=== PATIENT | male | born 1960 | race Caucasian/White ===

== ENCOUNTER 2017-08-03 10:48 | Emergency (ER) | payer OTHER ==
[2017-08-03] MEDS ORDERED: BACIGUENT PACKET TP ONE (11:27)
[2017-08-03] MEDS ORDERED: XYLOCAINE 1% HCL 20 ML MDV IJ ONE (11:27)
[2017-08-03] MEDS ORDERED: Adacel Vial IM ONE ×2 (11:27→11:44)
--- NOTE | 2017-08-03 11:32 | ERPHSYRPT ---
- History of Present Illness Time Seen by Provider: 08/03/17 11:23 Source: patient Exam Limitations: no limitations Patient Subjective Stated Complaint: Pt states "I cut my finger on a wild staples. " Triage Nursing Assessment: Pt alert and oriented X 3, skin pwd. Pt ambulates without difficulty, able to speak in clear full sentences, pt has laceration on rt index finger approx 1 inch long, csm distal to injury is good, cap refill distall to finger <2. bleeding is controlled. workmans comp Physician History: This is a 57-year-old white male he arrives with complaint of laceration to his dorsal proximal left index finger at approximately 9:00 while at work he states he cut it on a Wild pin. Patient denies movement problems he has no sensory problems with the extremity. Past medical history patient denies. Past surgical history knee surgery bilaterally. Occurred: just prior to arrival Method of Injury: other (lacerated left index finger on [place] pin) Quality: constant Severity of Pain-Max: moderate Severity of Pain-Current: mild Extremities Pain Location: 2nd finger: left Modifying Factors: Improves With: nothing Associated Symptoms: No back pain, No chills, No chest discomfort, No chest pain , No dyspnea, No fever, No jaw pain, No nausea, No neck pain, No sweating, No short of breath, No vomiting Allergies/Adverse Reactions: No Known Drug Allergies Allergy (Unverified 08/03/17 11:04) Home Medications: Venlafaxine HCl [Effexor] 25 mg PO DAILY 08/03/17 [History] Hx Tetanus, Diphtheria Vaccination/Date Given: No Hx Influenza Vaccination/Date Given: Yes Hx Pneumococcal Vaccination/Date Given: No Immunizations Up to Date: Yes - Review of Systems Constitutional: No Fever, No Chills Eyes: No Symptoms Ears, Nose, & Throat: No Symptoms Respiratory: No Cough, No Dyspnea Cardiac: No Chest Pain, No Edema, No Syncope Abdominal/Gastrointestinal: No Abdominal Pain, No Nausea, No Vomiting, No Diarrhea Genitourinary Symptoms: No Dysuria Musculoskeletal: Other (laceration left dorsal index finger), No Back Pain, No Neck Pain Skin: Other (laceration left dorsal index finger), No Rash Neurological: No Dizziness, No Focal Weakness, No Sensory Changes Psychological: No Symptoms Endocrine: No Symptoms All Other Systems: Reviewed and Negative - Past Medical History Pertinent Past Medical History: Yes Other Medical History: depression - Past Surgical History Past Surgical History: Yes Other Surgical History: knee surgery bilat - Social History Smoking Status: Current every day smoker How long have you smoked: years Exposure to second hand smoke: Yes Drug Use: none Patient Lives Alone: No - Nursing Vital Signs Nursing Vital Signs: Initial Vital Signs Temperature 97.6 F 08/03/17 10:57 Pulse Rate 64 08/03/17 10:57 Respiratory Rate 16 08/03/17 10:57 Blood Pressure 124/82 08/03/17 10:57 O2 Sat by Pulse Oximetry 98 08/03/17 10:57 Pain Scale Pain Intensity 4 - Physical Exam General Appearance: mild distress, alert Eyes, Ears, Nose, Throat Exam: moist mucous membranes Neck Exam: non-tender, supple Cardiovascular/Respiratory Exam: chest non-tender, normal breath sounds, regular rate/rhythm, no respiratory distress Abdominal Exam: non-tender, No guarding Back Exam: normal inspection, No vertebral tenderness Shoulder Exam: normal inspection, non-tender, no evidence of injury, normal ROM Elbow/Forearm Exam: normal inspection, non-tender, no evidence of injury, normal ROM Wrist Exam: normal inspection, non-tender, no evidence of injury, normal ROM Hand Exam: No normal inspection (left hand with a 2 cm laceration dorsal left indde finger, full range of motion all fingers good capilarry refill all fingers , sensation intact to all fingers) Neuro/Tendon Exam: normal sensation, normal motor functions, normal tendon functions, no evidence tendon injury, No motor deficit, No sensory deficit Mental Status Exam: alert, oriented x 3, cooperative Skin Exam: normal color, warm, dry SpO2 Interpretation: normal (98%) SpO2: 98 Oxygen Delivery: Room Air - Course Nursing assessment & vital signs reviewed: Yes Ordered Tests: Active Orders 24 hr Category Date Time Status Prepare for Sutures STAT Care 08/03/17 11:27 Active Sutures STAT Care 08/03/17 11:27 Active Wound Care STAT Care 08/03/17 11:27 Active Medication Summary Discontinued Medications Generic Name Dose Route Start Last Admin Trade Name Freq PRN Reason Stop Dose Admin Bacitracin 0.9 gm 08/03/17 11:27 Baciguent Packet TP 08/03/17 11:28 STAT ONE Bacitracin Confirm 08/03/17 11:41 Baciguent Packet Administered 08/03/17 11:42 Dose 1 gm .ROUTE .STK-MED ONE Diphtheria/Tetanus/Acell Pertussis 0.5 ml 08/03/17 11:27 Adacel Vial IM 08/03/17 11:28 .ONCE ONE Diphtheria/Tetanus/Acell Pertussis Confirm 08/03/17 11:44 Adacel Vial Administered 08/03/17 11:45 Dose 0.5 ml IM .STK-MED ONE Lidocaine HCl 5 ml 08/03/17 11:27 Xylocaine 1% Hcl 20 Ml Mdv IJ 08/03/17 11:28 STAT ONE - Progress Progress: improved Progress Note: 08/03/17 11:52 Laceration repair 2 cm laceration dorsal left index finger. Laceration sterilely prepped and draped. Anesthetized with 1% lidocaine by medics. Sutured using 7 5-0 Ethilon sutures. Patient neurovascularly intact after repair. Bacitracin placed and dressing placed. Patient's DTaP was updated - Departure Time of Disposition: 11:53 Departure Disposition: Home Clinical Impression: Laceration of left index finger Qualifiers: Encounter type: initial encounter Damage to nail status: without damage Foreign body presence: without foreign body Qualified Code(s): S61.211A - Laceration without foreign body of left index finger without damage to nail, initial encounter Condition: Fair Critical Care Time: No Referrals: DOCTOR,NO FAMILY [Primary Care Provider] - Additional Instructions: Return home. Bacitracin daily until healed. Sutures out in 5-7 days. Keep area clean and dry no traction on wound. Follow-up with your family doctor, company doctor or return if problems or sign of infection. Return for acute distress or for severe symptoms.
[2017-08-03] MEDS ORDERED: BACIGUENT PACKET ONE (11:41)
[2017-08-03 12:10] VITALS: BP 124/77; PULSE 80; O2SAT 97
== END 2017-08-03 12:11 | disposition home or self-care (01) ==
LOC: ED 10:48
PROC: 0HQGXZZ Repair Left Hand Skin, External Approach (ICD-10-PCS; principal; 2017-08-03)
DX: S61.211A Laceration without foreign body of left index finger without damage to nail, initial encounter (principal); W26.8XXA Contact with other sharp object(s), not elsewhere classified, initial encounter
CPT/HCPCS: 12001; 36415; 80307; 90471; 90715; 99283; G0481; A9270-GY